=== PATIENT | male | born 1955 | race African-American/Black ===

== ENCOUNTER 2017-06-08 06:30 | Emergency (ER) | payer SELFPAY ==
[~2017-06-08] VITALS: Ht 170.1 cm; Wt 96.2 kg
[~2017-06-08 06:30] MED LIST: BENICAR HCT 12.1 TA2; IBU800 MG PO; INDOCIN25 MG PO; PREDNISONE50 MG PO
[2017-06-08 07:23] LABS: HEMATOCRIT 36.2 % (42.0-52.0); HEMOGLOBIN 12.1 g/dl (14.0-18.0); MEAN CELL VOLUME 83.2 fl (80.0-94.0); MEAN CORPUSCULAR HGB 27.8 pg (27.0-31.0); MEAN CORPUSCULAR HGB CONC 33.4 g/dl (33.0-37.0); MEAN PLATELET VOLUME 10.5 fl (9.6-12.3); PLATELET COUNT AUTOMATED 322 10*3/uL (130-400); RED BLOOD COUNT 4.35 10*6/uL (4.50-5.90); WHITE BLOOD COUNT 21.3 10*3/uL (4.8-10.8)
[2017-06-08 07:35] LABS: ALBUMIN 3.7 gm/dl (3.1-4.5); CREATININE 2.4 mg/dL (0.70-1.30); POTASSIUM 4.3 mmol/L (3.5-5.1); TOTAL PROTEIN 9.1 gm/dL (6.4-8.2)
[2017-06-08 07:44] LABS: PLATELET SUFFICIENCY NORMAL (NORMAL); TOTAL CELLS COUNTED 100 #CELLS
== END 2017-06-08 10:13 | disposition short-term general hospital (02) ==
LOC: ED 06:30
PROVIDERS: Emergency Medicine Emergency Medical Services
DX: J98.8 Other specified respiratory disorders (principal); Z79.899 Other long term (current) drug therapy

== ENCOUNTER 2017-06-21 03:08 | Emergency (ER) | payer SELFPAY ==
[~2017-06-21] VITALS: Ht 170.1 cm; Wt 120.2 kg
[2017-06-21 03:48] LABS: HEMATOCRIT 35.7 % (42.0-52.0); HEMOGLOBIN 11.9 g/dl (14.0-18.0); MEAN CELL VOLUME 82.6 fl (80.0-94.0); MEAN CORPUSCULAR HGB 27.5 pg (27.0-31.0); MEAN CORPUSCULAR HGB CONC 33.3 g/dl (33.0-37.0); MEAN PLATELET VOLUME 9.9 fl (9.6-12.3); PLATELET COUNT AUTOMATED 433 10*3/uL (130-400); RED BLOOD COUNT 4.32 10*6/uL (4.50-5.90); RED CELL DISTRI WIDTH 13.9 % (0-14.5); WHITE BLOOD COUNT 14.8 10*3/uL (4.8-10.8)
[2017-06-21 04:05] LABS: ALBUMIN 3.4 gm/dl (3.1-4.5); ALKALINE PHOSPHATASE 67 U/L (45-117); BUN 29 mg/dl (7-24); CHLORIDE 101 mmol/L (98-107); CREATININE 1.99 mg/dL (0.70-1.30); LIPASE 317 U/L (73-393); POTASSIUM 3.7 mmol/L (3.5-5.1); SGOT/AST 15 IU/L (3-35); SGPT/ALT 19 U/L (12-78); SODIUM 135 mmol/L (136-145)
[2017-06-21 04:06] LABS: TROPONIN I < 0.015 ng/ml (<0.045)
[2017-06-21 04:16] LABS: ATYPICAL LYMPHS 8 % (0-0); PLATELET SUFFICIENCY NORMAL (NORMAL); TOTAL CELLS COUNTED 100 #CELLS
== END 2017-06-21 06:10 | disposition short-term general hospital (02) ==
LOC: ED 03:08
PROVIDERS: Student in an Organized Health Care Education/Training Program
DX: I63.9 Cerebral infarction, unspecified (principal); Z79.899 Other long term (current) drug therapy

== ENCOUNTER 2019-07-17 16:08 | Emergency (ER) | payer SELFPAY ==
[~2019-07-17] VITALS: Ht 170.1 cm; Wt 108.9 kg
[2019-07-17] MEDS ORDERED: ROBAXIN-750750 MG PO (17:59)
[2019-07-17] MEDS ORDERED: MEDROL DOSEPAK4 MG PO (17:59)
[2019-07-17 18:17] LABS: BILIRUBIN NEGATIVE (NEGATIVE); BLOOD NEGATIVE (NEGATIVE); CLARITY CLEAR (CLEAR); COLOR YELLOW (YELLOW); GLUCOSE NEGATIVE (NEGATIVE); KETONE NEGATIVE (NEGATIVE); LEUKO ESTERASE NEGATIVE (NEGATIVE); NITRITE NEGATIVE (NEGATIVE); PH 5.5 (5.0-9.0); UROBILINOGEN 0.2 E.U./dl (0.2-1.0)
[2019-07-17 18:25] LABS: WBC 0-2 wbc/hpf (0-5)
== END 2019-07-17 18:56 | disposition home or self-care (01) ==
LOC: ED 16:08
PROVIDERS: Nurse Practitioner Family
DX: M62.830 Muscle spasm of back (principal); I10 Essential (primary) hypertension; M10.9 Gout, unspecified; Z86.73 Personal history of transient ischemic attack (TIA), and cerebral infarction without residual deficits

== ENCOUNTER 2020-12-06 10:09 | Emergency (ER) | payer OTHER ==
[~2020-12-06] VITALS: Ht 170.1 cm; Wt 104.3 kg
[~2020-12-06 10:09] MED LIST changes: +MEDROL DOSEPAK4 MG PO; +ROBAXIN-750750 MG PO
[2020-12-06] MEDS ORDERED: PREDNISONE20 M1 PO (14:43)
== END 2020-12-06 14:48 | disposition home or self-care (01) ==
LOC: ED 10:09
DX: M65.331 Trigger finger, right middle finger (principal); Z79.899 Other long term (current) drug therapy

== ENCOUNTER 2022-06-01 15:05 | Inpatient (IN) | payer OTHER ==
[2022-06-01] VITALS (9 sets, daily range): BP systolic 80–117; BP diastolic 35–60
[~2022-06-01] VITALS: Ht 170.1 cm; Wt 102.2 kg
[~2022-06-01 15:05] MED LIST changes: +CEFTRIAXONE1 GM IJ; +CYCLOBENZAPRINE10 MG PO; +INDOMETHACIN25 M1 PO; +LISINOPRIL-HCT1 EACH PO; +PREDNISONE10 MG PO; +PREDNISONE20 M1 PO; +ZITHROMAX TRI-500 M1 PO
[2022-06-01] MEDS ORDERED: ATORVASTATIN CA20 M1 PO (15:18)
[2022-06-01] MEDS ORDERED: LEVOFLOXACIN750 M2 PO (15:18)
[2022-06-01] MEDS ORDERED: ALLOPURINOL100 MG PO (15:18)
[2022-06-01] MEDS ORDERED: LISINOPRIL20 MG PO (15:19)
[2022-06-01] MEDS ORDERED: ONDANSETRON HYDR4 M1 PO (15:20)
[2022-06-01 15:58] LABS: BASO # 0.1 10*3/uL (0.0-0.1); BASO % 0.8 % (0.0-1.0); EOS # 0.3 10*3/uL (0.0-0.4); EOS % 2.6 % (1.0-4.0); HEMATOCRIT 26.6 % (42.0-52.0); LYMPH # 2.3 10*3/uL (1.3-4.4); MEAN CELL VOLUME 81.1 fl (80.0-94.0); MEAN CORPUSCULAR HGB 26.5 pg (27.0-31.0); MEAN CORPUSCULAR HGB CONC 32.7 g/dl (33.0-37.0); MEAN PLATELET VOLUME 9.8 fl (9.6-12.3); MONO # 0.6 10*3/uL (0.1-1.0); MONO % 5.2 % (3.0-9.0); NEUT # 7.7 10*3/uL (2.3-7.9); NEUT % 69.9 % (47.0-73.0); PLATELET COUNT AUTOMATED 583 10*3/uL (130-400); RED BLOOD COUNT 3.28 10*6/uL (4.50-5.90); RED CELL DISTRI WIDTH 14.4 % (0-14.5); WHITE BLOOD COUNT 11.1 10*3/uL (4.8-10.8)
[2022-06-01 16:20] LABS: CREATININE 7.53 mg/dL (0.70-1.30); POTASSIUM 4.9 mmol/L (3.5-5.1); TOTAL PROTEIN 8.2 gm/dL (6.4-8.2)
[2022-06-01 16:26] LABS: ACT PARTIAL THROMBO TIME 33.6 SECONDS (20.0-32.1); INTERNATIONAL NORM RATIO 1.3 (2.0-3.5)
[2022-06-01 23:36] LABS: BILIRUBIN Negative (Negative); BLOOD Negative (Negative); CLARITY Clear (Clear); COLOR Yellow (Yellow); GLUCOSE Negative (Negative); KETONE Negative (Negative); LEUKO ESTERASE Negative (Negative); NITRITE Negative (Negative); UROBILINOGEN 0.2 E.U./dl (0.0-1.0)
[2022-06-01 23:45] LABS: WBC 0-2 wbc/hpf (0-5)
[2022-06-02 04:00] VITALS: BP 126/64
[2022-06-02 04:00] LABS: BASO % 0.4 % (0.0-1.0); EOS # 0.3 10*3/uL (0.0-0.4); EOS % 3.8 % (1.0-4.0); HEMATOCRIT 24.9 % (42.0-52.0); LYMPH # 1.4 10*3/uL (1.3-4.4); LYMPH % 17.3 % (27.0-41.0); MEAN CELL VOLUME 82.2 fl (80.0-94.0); MEAN CORPUSCULAR HGB 26.4 pg (27.0-31.0); MEAN CORPUSCULAR HGB CONC 32.1 g/dl (33.0-37.0); MEAN PLATELET VOLUME 9.5 fl (9.6-12.3); MONO # 0.5 10*3/uL (0.1-1.0); MONO % 5.6 % (3.0-9.0); NEUT # 5.9 10*3/uL (2.3-7.9); NEUT % 72.5 % (47.0-73.0); PLATELET COUNT AUTOMATED 511 10*3/uL (130-400); RED BLOOD COUNT 3.03 10*6/uL (4.50-5.90); RED CELL DISTRI WIDTH 14.5 % (0-14.5); WHITE BLOOD COUNT 8.2 10*3/uL (4.8-10.8)
[2022-06-02 04:21] LABS: CREATININE 6.14 mg/dL (0.70-1.30); POTASSIUM 4.7 mmol/L (3.5-5.1); TOTAL PROTEIN 7.6 gm/dL (6.4-8.2)
[2022-06-02 08:00] VITALS: BP 91/49
[2022-06-02 10:57] LABS: FREE T4 1.26 ng/dl (0.76-1.46)
[2022-06-02 11:02] LABS: THYROID STIM HORMONE (HS) 0.515 uIU/ml (0.358-4.75)
[2022-06-02 12:00] VITALS: BP 84/46
[2022-06-02 16:00] VITALS: BP 92/50
[2022-06-02 20:00] VITALS: BP 100/49
[2022-06-03] VITALS: BP 108/46
[2022-06-03 04:00] VITALS: BP 95/48
[2022-06-03 04:14] LABS: BASO % 0.5 % (0.0-1.0); EOS # 0.1 10*3/uL (0.0-0.4); EOS % 2.2 % (1.0-4.0); HEMATOCRIT 25.9 % (42.0-52.0); LYMPH # 1.8 10*3/uL (1.3-4.4); LYMPH % 32.3 % (27.0-41.0); MEAN CORPUSCULAR HGB 26.3 pg (27.0-31.0); MEAN PLATELET VOLUME 9.5 fl (9.6-12.3); MONO # 0.5 10*3/uL (0.1-1.0); MONO % 8.8 % (3.0-9.0); NEUT # 3.1 10*3/uL (2.3-7.9); PLATELET COUNT AUTOMATED 454 10*3/uL (130-400); RED BLOOD COUNT 3.16 10*6/uL (4.50-5.90); RED CELL DISTRI WIDTH 14.5 % (0-14.5); WHITE BLOOD COUNT 5.6 10*3/uL (4.8-10.8)
[2022-06-03 04:29] LABS: INTERNATIONAL NORM RATIO 1.3 (2.0-3.5)
[2022-06-03 04:36] LABS: CREATININE 4.13 mg/dL (0.70-1.30); POTASSIUM 4.5 mmol/L (3.5-5.1); TOTAL PROTEIN 7.6 gm/dL (6.4-8.2)
[2022-06-03 08:00] VITALS: BP 110/53
[2022-06-03 16:00] VITALS: BP 101/50
[2022-06-03 20:00] VITALS: BP 109/68
[2022-06-04 00:22] VITALS: BP 124/66
[2022-06-04 04:00] VITALS: BP 119/61
[2022-06-04 06:32] LABS: BASO % 0.5 % (0.0-1.0); EOS # 0.1 10*3/uL (0.0-0.4); HEMATOCRIT 26.2 % (42.0-52.0); LYMPH # 2.2 10*3/uL (1.3-4.4); LYMPH % 36.4 % (27.0-41.0); MEAN CELL VOLUME 81.4 fl (80.0-94.0); MEAN CORPUSCULAR HGB 26.1 pg (27.0-31.0); MEAN CORPUSCULAR HGB CONC 32.1 g/dl (33.0-37.0); MEAN PLATELET VOLUME 9.5 fl (9.6-12.3); MONO # 0.5 10*3/uL (0.1-1.0); MONO % 8.5 % (3.0-9.0); NEUT # 3.1 10*3/uL (2.3-7.9); NEUT % 52.3 % (47.0-73.0); PLATELET COUNT AUTOMATED 416 10*3/uL (130-400); RED BLOOD COUNT 3.22 10*6/uL (4.50-5.90); RED CELL DISTRI WIDTH 14.3 % (0-14.5); WHITE BLOOD COUNT 5.9 10*3/uL (4.8-10.8)
[2022-06-04 06:35] LABS: CREATININE 2.82 mg/dL (0.70-1.30); POTASSIUM 4.1 mmol/L (3.5-5.1); TOTAL PROTEIN 7.6 gm/dL (6.4-8.2)
[2022-06-04 08:00] VITALS: BP 118/66
[2022-06-04 12:00] VITALS: BP 109/63
[2022-06-04 16:00] VITALS: BP 136/64
[2022-06-04 20:00] VITALS: BP 111/57
[2022-06-05] VITALS: BP 110/51
[2022-06-05 07:10] LABS: BASO % 0.2 % (0.0-1.0); EOS # 0.1 10*3/uL (0.0-0.4); EOS % 1.5 % (1.0-4.0); HEMATOCRIT 25.1 % (42.0-52.0); LYMPH # 1.7 10*3/uL (1.3-4.4); LYMPH % 35.9 % (27.0-41.0); MEAN CELL VOLUME 80.4 fl (80.0-94.0); MEAN CORPUSCULAR HGB 26.3 pg (27.0-31.0); MEAN CORPUSCULAR HGB CONC 32.7 g/dl (33.0-37.0); MEAN PLATELET VOLUME 8.6 fl (9.6-12.3); MONO # 0.3 10*3/uL (0.1-1.0); MONO % 7.3 % (3.0-9.0); NEUT # 2.6 10*3/uL (2.3-7.9); NEUT % 54.9 % (47.0-73.0); PLATELET COUNT AUTOMATED 317 10*3/uL (130-400); RED BLOOD COUNT 3.12 10*6/uL (4.50-5.90); RED CELL DISTRI WIDTH 14.4 % (0-14.5); WHITE BLOOD COUNT 4.7 10*3/uL (4.8-10.8)
[2022-06-05 07:29] LABS: POTASSIUM 3.8 mmol/L (3.5-5.1)
[2022-06-05 07:37] LABS: CREATININE 2.22 mg/dL (0.70-1.30); TOTAL PROTEIN 7.2 gm/dL (6.4-8.2); URIC ACID 6.6 mg/dL (3.5-7.2)
[2022-06-05 08:00] VITALS: BP 111/51
[2022-06-05 12:00] VITALS: BP 117/51
[2022-06-05 14:50] VITALS: BP 118/61
[2022-06-05 20:00] VITALS: BP 110/55
[2022-06-06] VITALS: BP 102/40
[2022-06-06 07:58] LABS: CREATININE 2.04 mg/dL (0.70-1.30); POTASSIUM 3.6 mmol/L (3.5-5.1)
[2022-06-06 08:00] VITALS: BP 121/65
[2022-06-06 12:00] VITALS: BP 127/70
[2022-06-06 16:00] VITALS: BP 90/55
[2022-06-06 17:24] VITALS: BP 110/52
[2022-06-06 20:00] VITALS: BP 106/52
[2022-06-07] VITALS: BP 108/56
[2022-06-07 07:32] LABS: CREATININE 1.75 mg/dL (0.70-1.30); POTASSIUM 3.3 mmol/L (3.5-5.1)
[2022-06-07 08:00] VITALS: BP 110/85
[2022-06-07 12:00] VITALS: BP 100/54
== END 2022-06-07 16:13 | disposition home or self-care (01) | DRG 314 ==
LOC: ED 15:05 → EDHOLD 18:43 → 4E 18:43 → ICCU 18:43 → 4E 06-04 11:47
PROVIDERS: Emergency Medicine; Internal Medicine; Internal Medicine Nephrology; Orthopaedic Surgery; Student in an Organized Health Care Education/Training Program; ADMIT Internal Medicine; ATTEND Internal Medicine
PROC: 5A09357 Assistance with Respiratory Ventilation, Less than 24 Consecutive Hours, Continuous Positive Airway Pressure (ICD-10-PCS; principal; 2022-06-02)
DX: I95.89 Other hypotension (principal); E43 Unspecified severe protein-calorie malnutrition; N17.0 Acute kidney failure with tubular necrosis; U07.1 COVID-19; R57.1 Hypovolemic shock; E86.0 Dehydration; D64.9 Anemia, unspecified; N18.32 Chronic kidney disease, stage 3b; E11.22 Type 2 diabetes mellitus with diabetic chronic kidney disease; E78.5 Hyperlipidemia, unspecified; I12.9 Hypertensive chronic kidney disease with stage 1 through stage 4 chronic kidney disease, or unspecified chronic kidney disease; G47.33 Obstructive sleep apnea (adult) (pediatric); D72.829 Elevated white blood cell count, unspecified; D75.839 Thrombocytosis, unspecified; E11.65 Type 2 diabetes mellitus with hyperglycemia; E87.8 Other disorders of electrolyte and fluid balance, not elsewhere classified; E55.9 Vitamin D deficiency, unspecified; R43.2 Parageusia; K76.0 Fatty (change of) liver, not elsewhere classified; Z80.3 Family history of malignant neoplasm of breast; Z80.0 Family history of malignant neoplasm of digestive organs; Z68.35 Body mass index [BMI] 35.0-35.9, adult